=== PATIENT | female | born 1960 | race Two or more races ===

== ENCOUNTER → 2017-09-18 | Outpatient (CLI) | payer BC, MEDICARE ==
[~2017-09-18] MED LIST: ACYC800 PO; ALBU90OI6 INH; ASPI81CH PO; ATOR80 PO; BUPR150ERA PO; CARV25 PO; ESTR1; ESTR1 PO; FLUSAL2505 IH; FURO40; FURO40 PO; GLIP10ER PO; Humalog Mi100 UNIT/4 SQ; INSULANI SC; LOVA20 PO; METF500 PO; METO100ER; MULVITMINF; MULVITMINF PO; OLME20; OLME20 PO; OXYACE5T PO; POTA10T; POTA10T PO; SERT50; SERT50 PO; SITA25T2 PO; SPIR25; SPIR25 PO
== END ==
LOC: LAB EV 12:17 → LAB SHORT 12:17
DX: N39.0 Urinary tract infection, site not specified (principal)
CPT/HCPCS: 87077; 87086; 87186

== ENCOUNTER 2022-07-22 14:20 | Emergency (ER) | payer MEDICARE ==
[~2022-07-22] VITALS: Ht 167.6 cm; Wt 113.4 kg
[2022-07-22 15:41] LABS: BASOPHILS ABSOLUTE AUTO 0.03 K/mm3 (0.00-0.23); BASOPHILS PERCENT AUTO 0 % (0-2); EOSINOPHILS ABSOLUTE AUTO 0.06 K/mm3 (0.00-0.68); EOSINOPHILS PERCENT AUTO 1 % (0-6); Hematocrit 43.8 % (33.0-51.0); Hemoglobin 14.6 g/dL (11.5-16.0); IMMATURE GRAN ABSOLUTE AUTO 0.02 K/mm3 (0.00-0.10); IMMATURE GRAN PERCENT AUTO 0 % (0-1); LYMPHOCYTES ABSOLUTE AUTO 1.53 K/mm3 (0.84-5.20); LYMPHOCYTES PERCENT AUTO 17 % (21-46); MONOCYTES ABSOLUTE AUTO 0.38 K/mm3 (0.16-1.47); MONOCYTES PERCENT AUTO 4 % (4-13); Mean Corpuscular HGB 32.8 pg (26.0-34.0); Mean Corpuscular HGB Conc 33.3 g/dL (31.5-36.5); Mean Corpuscular Volume 98 fL (80-100); Mean Platelet Volume 11.6 fL (9.1-12.4); NEUTROPHILS PERCENT AUTO 77 % (41-73); Platelet Count 190 K/mm3 (150-400); RDW Coefficient Variation 12.8 % (11.7-14.2); RDW Standard Deviation 46.5 fL (35.1-46.3); Red Blood Cell Count 4.45 M/mm3 (3.80-5.20); White Blood Cell Count 8.92 K/mm3 (4.00-11.30)
[2022-07-22 16:08] LABS: Albumin, Blood 3.7 g/dL (3.4-5.0); Albumin/Globulin Ratio 0.9 (0.8-1.8); Bilirubin, Total 0.5 mg/dL (0.1-1.0); Bun/Creatinine Ratio 22.3 (12.0-20.0); Calcium, Blood 9.2 mg/dL (8.5-10.1); Creatinine, Blood 0.9 mg/dL (0.40-1.00); Globulin, Blood 3.9 g/dL (2.2-4.0); Potassium, Blood 3.8 mmol/L (3.5-5.5); Total Protein, Blood 7.6 g/dL (6.4-8.2)
[2022-07-22] MEDS ORDERED: LOSA50 PO (21:36)
[2022-07-22] MEDS ORDERED: BASAGLAR K100 UNIT/8 SC (21:36)
[2022-07-22] MEDS ORDERED: Prozac20 MG PO (21:37)
[2022-07-22] MEDS ORDERED: COREG25 MG PO (21:37)
[2022-07-22] MEDS ORDERED: ASSURE PLATINU1 EAC2 MC (21:37)
[2022-07-22] MEDS ORDERED: SITA100T2 PO (21:37)
[2022-07-27] MEDS ORDERED: LOSA50 PO (13:09)
[2022-07-27] MEDS ORDERED: ATOR80 PO (13:09)
[2022-07-27] MEDS ORDERED: Aspir 8181 MG PO (13:09)
[2022-07-27] MEDS ORDERED: SITA100T2 PO (13:10)
[2022-07-27] MEDS ORDERED: Prozac20 MG PO (13:10)
[2022-07-27] MEDS ORDERED: TOPI50 PO (13:10)
[2022-07-27] MEDS ORDERED: CARV25 PO (13:10)
[2022-07-27] MEDS ORDERED: JARDIANCE25 MG PO (13:10)
[2022-07-27] MEDS ORDERED: NOVOLOG FL100 UNIT/3 (13:11)
[2022-07-27] MEDS ORDERED: BASAGLAR K100 UNIT/1 SC (13:11)
[2022-07-27] MEDS ORDERED: ACET500 PO (15:30)
[2022-07-27] MEDS ORDERED: DOCU100 PO (15:31)
== END 2022-07-22 17:40 | disposition home or self-care (01) ==
LOC: ER 14:20
PROVIDERS: Emergency Medicine
DX: E11.649 Type 2 diabetes mellitus with hypoglycemia without coma (principal); Z95.0 Presence of cardiac pacemaker
CPT/HCPCS: 36415; 80053; 82947; 85025; 96374; 96375; 99285-25; J1200; J1885; J2765